=== PATIENT | female | born 1935 | race Caucasian/White ===

== ENCOUNTER 2017-06-26 11:10 | Emergency (ER) | payer MEDICARE ==
[~2017-06-26] VITALS: Ht 154.9 cm; Wt 90.0 kg
[~2017-06-26 11:10] MED LIST: ALBU6.7H INH; CALC600T34 PO; DUONSOL2 NEB; FISH1000 PO; GLIP5TAB8 PO; LANO0.2510 PO; LEVO50TA51 PO; LISI-363 PO; POTA-243 PO; TAB-TAB PO; TOPR50TA PO; VITA400C28 PO; WARF2.5 PO
[2017-06-26 11:21] VITALS: BP 199/87; PULSE 54; RESP 15; TEMP 97.8; O2SAT 96
--- NOTE | 2017-06-26 12:01 | PD ---
HPI Chief Complaint: Fall Time Seen by Provider: 11:58 Travel History International Travel<30 days: No Contact w/Intl Traveler<30days: No Traveled to known affect area: No History of Present Illness HPI 80-year-old female that presents to the ED for evaluation of fall. Per patient she tripped and fell at [employer] today. Per patient she currently uses postop shoes secondary to lymphedema to her lower legs. This is chronic for her. She states that she missed a step and she fell forwards and hit her head. She did not lose consciousness but she does take warfarin. She denies any chest pain or arm pain. No back pain or neck pain. She was unable to get herself but she was able to get herself up with assistance. She does have a big abrasion and bruise to the left forehead. No other injuries reported. Per patient she does have 4 out of 10 pain on the area. No numbness, tilling, weakness. No urinary or bowel movement issues. PFSH Past Medical History Hx Anticoagulant Therapy: Yes (WARFARIN) Arthritis: Yes Asthma: No Atrial Fibrillation: Yes Blood Disorders: Yes (ON COUMADIN ) Anxiety: No Depression: No Heart Rhythm Problems: Yes (AFIB ) Cancer: Yes (uterine) Cardiovascular Problems: Yes (htn) High Cholesterol: Yes Chemotherapy: No Chest Pain: No Congestive Heart Failure: No COPD: Yes Diabetes: Yes Patient Takes Glucophage: No Diminished Hearing: No Diverticulitis: Yes Endocrine: Yes Gastrointestinal Disorders: Yes (GI BLEEDS IN PAST,DIVERTIC., HEMORRIODS) Glaucoma: Yes Genitourinary: No Hepatitis: No Hiatal Hernia: No Hypertension: Yes Immune Disorder: No Medical other: No Neurologic: Yes (BILAT LEGS NEUROPATHY) Psychiatric: No Reproductive: No Respiratory: Yes (COPD) Myocardial Infarction: No Pneumonia: Yes Radiation Therapy: Yes Sleep Apnea: Yes (wears CPAP AT HS, NON-COMPLIANT) Thyroid Disease: Yes Influenza Vaccination: Yes ?: Not Past Surgical History AICD: No Body Medical Devices: BILAT KNEES Eye Surgery: Yes (BOTH EYES CATARACTS REMOVED) Genitourinary Surgery: Yes Gynecologic Surgery: Yes (HYSTERECTOMY) Hysterectomy: Yes Joint Replacement: Yes (BILATERAL KNEES) Oral Surgery: Yes (TEETH EXTRACTIONS, T&A) Pacemaker: No Tonsillectomy: Yes Other Surgery: Yes (BILAT KNEE REPLACEMENTS, BILAT CATARACTS ) Social History Alcohol Use: No Tobacco Use: No Substance Use: No Allergies-Medications (Allergen,Severity, Reaction): Coded Allergies: Amlodipine (Verified Allergy, Severe, 10/01/15) Glucophage (Verified Allergy, Severe, diahrrea, 10/01/15) Penicillin (Verified Allergy, Severe, rash, 10/01/15) Uncoded Allergies: spiriva (Allergy, Severe, visual disturbance, 07/15/10) Reported Meds & Prescriptions Reported Meds & Active Scripts Active Amoxicillin 875 Mg Tab 875 Mg PO BID 10 Days Tramadol (Tramadol HCl) 50 Mg Tab 50 Mg PO Q6H PRN Reported Fish Oil 1000 mg ([place]-3 Fatty Acids) 1 Cap Cap 1,000 Mg PO DAILY Calcium (Calcium Carbonate) 600 Mg Tab 600 Mg PO HS Coumadin (Warfarin) 4 Mg Tab 4 Mg PO DAILY Lisinopril 20 Mg Tab 20 Mg PO DAILY Levothyroxine (Levothyroxine Sodium) 75 Mcg Tab 75 Mcg PO DAILY Glipizide 5 Mg Tab 5 Mg PO BID Take 30 minutes before a meal Lopressor (Metoprolol Tartrate) 50 Mg Tab 50 Mg PO BID K-Tab (Potassium Chloride) 10 Meq Tab 10 Meq PO DAILY Take with food Atorvastatin (Atorvastatin Calcium) 20 Mg Tab 20 Mg PO HS Review of Systems Except as stated in HPI: all other systems reviewed are Neg Physical Exam Narrative GENERAL: SKIN: Warm and dry. HEAD: Atraumatic. Normocephalic. EYES: Pupils equal and round 4 mm reactive to light and accommodation. No scleral icterus. No injection or drainage. ENT: No nasal bleeding or discharge. Mucous membranes pink and moist. Tongue is midline. No uvula deviation. NECK: Trachea midline. No JVD. CARDIOVASCULAR: Regular rate and rhythm. No murmurs, S3, S4. RESPIRATORY: No accessory muscle use. Clear to auscultation. Breath sounds equal bilaterally. GASTROINTESTINAL: Abdomen soft, non-tender, nondistended. Hepatic and splenic margins not palpable. MUSCULOSKELETAL: Extremities without clubbing, cyanosis, or edema. No obvious deformities. Full range of motion of the upper and lower extremities bilaterally. No cervical, thoracic, lumbar spine tenderness to palpation. No scapular or pelvic bone tenderness to palpation. Patient does have swelling that is chronic on the lower legs bilaterally. Patient has Neftaly wraps on them. Postop shoes noted as well. Good 2+ pulses bilaterally. NEUROLOGICAL: Awake and alert. No obvious cranial nerve deficits. Motor grossly within normal limits. Five out of 5 muscle strength in the arms and legs. Normal speech. PSYCHIATRIC: Appropriate mood and affect; insight and judgment normal. Data Data Last Documented VS Vital Signs Date Time Temp Pulse Resp B/P Pulse Ox O2 Delivery O2 Flow Rate FiO2 06/26/17 11:31 55 97 Room Air 06/26/17 11:21 97.8 15 199/87 Orders Complete Blood Count With Diff (06/26/17 11:27) Prothrombin Time / Inr (Pt) (06/26/17 11:27) Act Partial Throm Time (Ptt) (06/26/17 11:27) Ct Brain W/O Iv Contrast(Rout) (06/26/17 ) Ct Facial Bones W/O Iv Cont (06/26/17 ) Acetaminophen (Tylenol) (06/26/17 12:15) Ice/Cold Pack (06/26/17 12:01) Labs Laboratory Tests Test 06/26/17 11:55 White Blood Count 5.0 TH/MM3 Red Blood Count 4.29 MIL/MM3 Hemoglobin 11.5 GM/DL Hematocrit 34.7 % Mean Corpuscular Volume 80.8 FL Mean Corpuscular Hemoglobin 26.8 PG Mean Corpuscular Hemoglobin 33.1 % Concent Red Cell Distribution Width 18.0 % Platelet Count 133 TH/MM3 Mean Platelet Volume 8.8 FL Neutrophils (%) (Auto) 76.7 % Lymphocytes (%) (Auto) 9.2 % Monocytes (%) (Auto) 7.2 % Eosinophils (%) (Auto) 4.6 % Basophils (%) (Auto) 2.3 % Neutrophils # (Auto) 3.8 TH/MM3 Lymphocytes # (Auto) 0.5 TH/MM3 Monocytes # (Auto) 0.4 TH/MM3 Eosinophils # (Auto) 0.2 TH/MM3 Basophils # (Auto) 0.1 TH/MM3 CBC Comment DIFF FINAL Differential Comment Prothrombin Time 23.7 SEC Prothromb Time International 2.1 RATIO Ratio Activated Partial 36.2 SEC Thromboplast Time MDM Medical Decision Making Medical Screen Exam Complete: Yes Emergency Medical Condition: Yes Medical Record Reviewed: Yes Interpretation(s) CBC Diagram 06/26/17 11:55 Coags WNL Last Impressions Maxillofacial CT 06/26/17 0000 Signed Impressions: Service Date/Time: Monday, June 26, 2017 12:59 - CONCLUSION: Infraorbital rim fracture on the left. Sumit Paz MD Head CT 06/26/17 0000 Signed Impressions: Service Date/Time: Monday, June 26, 2017 12:57 - CONCLUSION: 1. Large left periorbital soft tissue hematoma with fluid in the left maxilla sinus concerning for a subtle fracture not visualized on this study. This will be further evaluated on facial CT scan already ordered. Magen Recinos MD Differential Diagnosis Fall versus head injury versus cranial fracture versus ICH versus bruise versus contusion versus coagulopathy Narrative Course 80-year-old female that presents to the ED for evaluation of fall. Patient was properly examined and was found to have signs and symptoms consistent with fall. Labs and imaging were ordered. Patient is neurovascular intact at this time. She was given Tylenol for pain. Labs and imaging showed fracture of the infraorbital rim. Case was discussed in my attending who recommends we speak with ophthalmology. I spoke with Dr. Bates who agrees the patient in follow-up outpatient but she might need to follow-up with maxillofacial surgeon because of the fracture and not ophthalmology. Patient was told this and agrees with plan. Patient will be started on amoxicillin to cover for infection as well as tramadol for pain. She was told to avoid blowing her nose. Follow-up with PCP. See ED worsening symptoms. Patient was evaluated before discharge and she has no entrapment with full EOM movement. Diagnosis Primary Impression: Head injury, acute Qualified Code: S09.90XA - Head injury, acute, initial encounter Additional Impression: Closed blow-out fracture of floor of orbit Patient Instructions: General Instructions Additional Instructions: Take medications as prescribed. Follow-up with PCP. See ED for any worsening symptoms. Do not drink or drive while taking pain medication. Apply ice or heat as needed for pain Med/Other Pt SpecificInfo: Prescription(s) given Scripts Amoxicillin 875 Mg [id number] Mg PO BID 10 Days Prov:Laurent Bolanos MD 06/26/17 Tramadol 50 Mg Tab50 Mg PO Q6H PRN (PAIN) #15 TAB Ref 0 Prov:Laurent Bolanos MD 06/26/17 Disposition: 01 DISCHARGE HOME Condition: Stable Reggie Rojas Jun 26, 2017 12:01
[2017-06-26 12:09] LABS: AUTOMATED NEUTROPHIL # 3.8 TH/MM3 (1.8-7.7); BASOPHIL # 0.1 TH/MM3 (0-0.2); BASOPHIL % 2.3 % (0.0-2.0); EOSINOPHIL # 0.2 TH/MM3 (0-0.4); EOSINOPHIL % 4.6 % (0.0-4.0); HEMATOCRIT 34.7 % (35.0-46.0); HEMO FLAGS DIFF FINAL; LYMPH % 9.2 % (9.0-44.0); LYMPHOCYTE # 0.5 TH/MM3 (1.0-4.8); MEAN CELL VOLUME 80.8 FL (80.0-100.0); MEAN CORPUSCULAR HEMOGLOBIN 26.8 PG (27.0-34.0); MEAN CORPUSCULAR HGB CONC 33.1 % (32.0-36.0); MONO % 7.2 % (0.0-8.0); NEUT % 76.7 % (16.0-70.0); PLATELET COUNT 133 TH/MM3 (150-450); RED BLOOD COUNT 4.29 MIL/MM3 (4.00-5.30)
[2017-06-26] MEDS ORDERED: ACETAMINOPHEN 325 MG TAB PO ONE (12:15)
[2017-06-26 12:17] LABS: APTT (PATIENT) 36.2 SEC (24.3-30.1); INTERNATIONAL NORMALIZED RATIO 2.1 RATIO; PROTHROMBIN TIME - PATIENT 23.7 SEC (9.8-11.6)
[2017-06-26] MEDS ORDERED: K-TA10TA PO (12:26)
[2017-06-26] MEDS ORDERED: GLIP5TAB8 PO (12:26)
[2017-06-26] MEDS ORDERED: CALC600T25 PO (12:26)
[2017-06-26] MEDS ORDERED: COUM4TAB PO (12:26)
[2017-06-26] MEDS ORDERED: LISI-515 PO (12:26)
[2017-06-26] MEDS ORDERED: METO-309 PO (12:26)
[2017-06-26] MEDS ORDERED: LEVO75TA3 PO (12:26)
[2017-06-26] MEDS ORDERED: ATOR20TA15 PO (12:26)
[2017-06-26] MEDS ORDERED: FISH100020 PO (12:28)
--- NOTE | 2017-06-26 13:26 | RADRPT ---
EXAM DATE/TIME: 06/26/2017 12:57 [facility] COMPARISON: No previous studies available for comparison. INDICATIONS : Trauma, fall. RADIATION DOSE: 56.35 CTDIvol (mGy) MEDICAL HISTORY : Cardiovascular disease. Hypertension. Uterine cancer. SURGICAL HISTORY : None. ENCOUNTER: Initial ACUITY: 1 day PAIN SCALE: 3/10 LOCATION: cranial TECHNIQUE: Multiple contiguous axial images were obtained of the head. Using automated exposure control and adj ustment of the mA and/or kV according to patient size, radiation dose was kept as low as reasonably a chievable to obtain optimal diagnostic quality images. DICOM format image data is available electro nically for review and comparison. FINDINGS: CEREBRUM: The ventricles are normal for age. No evidence of midline shift, mass lesion, hemorrhage or acute in farction. No extra-axial fluid collections are seen. POSTERIOR FOSSA: The cerebellum and brainstem are intact. The 4th ventricle is midline. The cerebellopontine angle i s unremarkable. EXTRACRANIAL: Large left periorbital soft tissue hematoma. Globes appear grossly intact bilaterally. No significant intraconal or extraconal hematoma or mass. There is however air fluid level in the left maxilla sinu s although a definitive fracture is not identified on this scan. SKULL: The calvaria is otherwise intact. No evidence of skull fracture. CONCLUSION: 1. Large left periorbital soft tissue hematoma with fluid in the left maxilla sinus concerning for a subtle fracture not visualized on this study. This will be further evaluated on facial CT scan geovani Recinos MD on June 26, 2017 at 13:18 Board Certified Radiologist. This report was verified electronically.
--- NOTE | 2017-06-26 13:26 | RADRPT ---
EXAM DATE/TIME: 06/26/2017 12:59 [facility] COMPARISON: CT BRAIN W/O CONTRAST, June 26, 2017, 12:57. INDICATIONS : Trauma, fall. Left eye pain and swelling. RADIATION DOSE: 36.82 CTDIvol (mGy) MEDICAL HISTORY : Cardiovascular disease. Hypertension. Uterine cancer. SURGICAL HISTORY : None. ENCOUNTER: Initial ACUITY: 1 day PAIN SCORE: 5/10 LOCATION: Left facial TECHNIQUE: Volumetric scanning of the facial bones was performed. Using automated exposure control and adjustme nt of the mA and/or kV according to patient size, radiation dose was kept as low as reasonably achiev able to obtain optimal diagnostic quality images. DICOM format image data is available electronicall y for review and comparison. FINDINGS: There is scalp swelling on the left side with focal hematoma. There is an infraorbital rim fracture o n the left side with slight herniation of fat contents and the inferior rectus is not herniated. CONCLUSION: Infraorbital rim fracture on the left. Sumit Paz MD on June 26, 2017 at 13:22 Board Certified Radiologist. This report was verified electronically.
--- NOTE | 2017-06-26 13:32 | PD ---
Data Data Last Documented VS Vital Signs Date Time Temp Pulse Resp B/P Pulse Ox O2 Delivery O2 Flow Rate FiO2 06/26/17 11:31 55 97 Room Air 06/26/17 11:21 97.8 15 199/87 Orders Complete Blood Count With Diff (06/26/17 11:27) Prothrombin Time / Inr (Pt) (06/26/17 11:27) Act Partial Throm Time (Ptt) (06/26/17 11:27) Ct Brain W/O Iv Contrast(Rout) (06/26/17 ) Ct Facial Bones W/O Iv Cont (06/26/17 ) Acetaminophen (Tylenol) (06/26/17 12:15) Ice/Cold Pack (06/26/17 12:01) Labs Laboratory Tests Test 06/26/17 11:55 White Blood Count 5.0 TH/MM3 Red Blood Count 4.29 MIL/MM3 Hemoglobin 11.5 GM/DL Hematocrit 34.7 % Mean Corpuscular Volume 80.8 FL Mean Corpuscular Hemoglobin 26.8 PG Mean Corpuscular Hemoglobin 33.1 % Concent Red Cell Distribution Width 18.0 % Platelet Count 133 TH/MM3 Mean Platelet Volume 8.8 FL Neutrophils (%) (Auto) 76.7 % Lymphocytes (%) (Auto) 9.2 % Monocytes (%) (Auto) 7.2 % Eosinophils (%) (Auto) 4.6 % Basophils (%) (Auto) 2.3 % Neutrophils # (Auto) 3.8 TH/MM3 Lymphocytes # (Auto) 0.5 TH/MM3 Monocytes # (Auto) 0.4 TH/MM3 Eosinophils # (Auto) 0.2 TH/MM3 Basophils # (Auto) 0.1 TH/MM3 CBC Comment DIFF FINAL Differential Comment Prothrombin Time 23.7 SEC Prothromb Time International 2.1 RATIO Ratio Activated Partial 36.2 SEC Thromboplast Time [facility] Supervised Visit with DIANA: Yes Narrative Course The history, exam, and medical decision-making in the associated mid-level provider note were completed with my assistance. I reviewed and agree with the findings presented. I attest that I had a [id number] encounter with the patient on the same day, and personally performed and documented my assessment and findings in the medical record. *My assessment and Findings: 80 year-old woman with fall at [employer]. She is a lot of lymphedema and it causes her to have instability. She is on warfarin. INR is 2.1. We'll check CT head, if negative will be cleared for discharge. She is a dose hematoma or on the left eye. The eye itself appears uninjured. Laurent Bolanos MD Jun 26, 2017 13:32
[2017-06-26] MEDS ORDERED: TRAM50TA PO (13:50)
[2017-06-26] MEDS ORDERED: AMOX875T PO (13:50)
== END 2017-06-26 15:47 | disposition home or self-care (01) ==
LOC: NEPC 11:10
DX: S09.90XA Unspecified injury of head, initial encounter (principal); S02.32XA Fracture of orbital floor, left side, initial encounter for closed fracture; I89.0 Lymphedema, not elsewhere classified; E11.9 Type 2 diabetes mellitus without complications; I10 Essential (primary) hypertension; E07.9 Disorder of thyroid, unspecified; E78.00 Pure hypercholesterolemia, unspecified; G47.30 Sleep apnea, unspecified; W01.0XXA Fall on same level from slipping, tripping and stumbling without subsequent striking against object, initial encounter; Y92.22 Religious institution as the place of occurrence of the external cause; Z79.01 Long term (current) use of anticoagulants; Z79.84 Long term (current) use of oral hypoglycemic drugs; Z87.39 Personal history of other diseases of the musculoskeletal system and connective tissue; Z86.79 Personal history of other diseases of the circulatory system; Z85.42 Personal history of malignant neoplasm of other parts of uterus; Z87.09 Personal history of other diseases of the respiratory system; Z87.19 Personal history of other diseases of the digestive system; Z86.69 Personal history of other diseases of the nervous system and sense organs
CPT/HCPCS: 70450; 70486; 85025; 85610; 85730; 99285